=== PATIENT | female | born 1945 | race Two or more races ===

== ENCOUNTER 2023-12-03 13:48 | Inpatient (IN) | payer MEDICARE, OTHER ==
[~2023-12-03] VITALS: Ht 157.5 cm; Wt 72.1 kg
[2023-12-03 22:34] VITALS: BP 126/64; TEMP 98.1; O2SAT 95
[2023-12-03] MEDS ORDERED: POTASSIUM BICARB PO (22:58)
[2023-12-03] MEDS ORDERED: AMLO10TA59 PO (22:58)
[2023-12-03] MEDS ORDERED: DOCU100C36 PO (22:58)
[2023-12-03] MEDS ORDERED: MECL-159 PO (22:58)
[2023-12-03] MEDS ORDERED: HYDR-894 PO (22:58)
[2023-12-03] MEDS ORDERED: LISI10TA29 PO (22:58)
[2023-12-03] MEDS ORDERED: ATOR20TA PO (22:58)
[2023-12-03] MEDS ORDERED: SENN8.6T19 PO (22:58)
[2023-12-03] MEDS ORDERED: LEVO50TA8 PO (22:58)
[2023-12-03] MEDS ORDERED: NITR0.4T48 SL (22:58)
[2023-12-03] MEDS ORDERED: zofran (22:58)
[2023-12-03] MEDS ORDERED: ENOX40DI SQ (22:58)
[2023-12-03] MEDS ORDERED: cymbalta (22:58)
[2023-12-03] MEDS ORDERED: MAG30ORA PO (22:58)
[2023-12-03] MEDS ORDERED: TRAM100T23 PO (22:58)
[2023-12-03] MEDS ORDERED: ASPI81TA31 PO (22:58)
[2023-12-04] MEDS ORDERED: REMEDY ESSENTIAL ZINC PASTE 113 GM TOP PRN (03:45)
[2023-12-04 06:00] VITALS: BP 153/60; TEMP 98.2; O2SAT 95
[2023-12-04] MEDS ORDERED: TRAMADOL HCL 50 MG TABLET PO PRN (08:45)
[2023-12-04] MEDS ORDERED: NITROGLYCERIN 0.4 MG/TAB BOTTLE SL PRN (08:45)
[2023-12-04] MEDS ORDERED: hydrALAZINE HCL 25 MG TABLET PO SCH (09:00)
[2023-12-04] MEDS ORDERED: ENOXAPARIN SODIUM 40 MG/0.4 ML DISP.SYRIN SQ SCH (09:00)
[2023-12-04] MEDS: DOCUSATE SODIUM 100 MG CAPSULE PO SCH (09:57)
[2023-12-04] MEDS: ASPIRIN 81 MG TAB.CHEW PO SCH (09:57)
[2023-12-04] MEDS: ATORVASTATIN 20 MG TABLET PO SCH (09:58)
[2023-12-04] MEDS: LEVOTHYROXINE SODIUM 50 MCG TABLET PO SCH (09:58)
[2023-12-04] MEDS: HYDROCODONE/APAP 5-325MG TABLET PO PRN (10:00)
[2023-12-04] MEDS ORDERED: DULO30CA2 PO (12:07)
[2023-12-04] MEDS: AMLODIPINE 10 MG TABLET PO SCH (12:49)
[2023-12-04] MEDS: hydrALAZINE HCL 25 MG TABLET PO SCH (14:33)
[2023-12-04] MEDS: LISINOPRIL 10 MG TABLET PO SCH (14:33)
[2023-12-04] MEDS: DULOXETINE 30 MG CAPSULE.DR PO SCH (14:33)
[2023-12-04] MEDS: ENOXAPARIN SODIUM 40 MG/0.4 ML DISP.SYRIN SQ ONE (14:34)
[2023-12-04 15:41] VITALS: BP 138/59; TEMP 97.8; O2SAT 99
[2023-12-04] MEDS: MAG HYDROX/AL HYDROX/SIMETH 30 ML LIQUID UDC PO SCH (17:10)
[2023-12-04] MEDS: MECLIZINE HCL 25 MG TABLET PO PRN (17:47)
[2023-12-04] MEDS: SENNOSIDES 1 TABLET PO PRN (18:04)
[2023-12-04 20:00] VITALS: BP 151/68; TEMP 97.6; O2SAT 95
[2023-12-04] MEDS: BISACODYL 10 MG SUPP.RECT RC PRN (21:31)
[2023-12-05 05:46] VITALS: BP 158/72; TEMP 97.7; O2SAT 95
[2023-12-05] MEDS: ONDANSETRON 4 MG/2 ML VIAL IV PRN (09:12)
[2023-12-05] MEDS: ENOXAPARIN SODIUM 40 MG/0.4 ML DISP.SYRIN SQ SCH (09:33)
[2023-12-05] MEDS: MEGESTROL ACETATE 400 MG/10 ML LIQUID UDC PO SCH (09:34)
[2023-12-05 11:04] VITALS: BP 138/68; TEMP 97.6; O2SAT 97
[2023-12-05 16:39] VITALS: BP 127/75; TEMP 97.8; O2SAT 97
[2023-12-05 21:57] VITALS: BP 129/63; TEMP 98.2; O2SAT 96
[2023-12-06 07:06] LABS: BASOPHILS % (AUTO) 0.7 % (0.0-2.0); EOSINOPHILS # (AUTO) 0.5 K/uL (0.0-0.7); EOSINOPHILS % (AUTO) 7.7 % (0.0-7.0); HEMATOCRIT 34.3 % (31.2-41.9); HEMOGLOBIN 11.6 g/dL (10.9-14.3); LYMPHOCYTES # (AUTO) 1.9 K/uL (0.8-4.8); LYMPHOCYTES % (AUTO) 27.1 % (20.5-51.5); MEAN CORPUSCULAR HEMOGLOBIN 33.4 uug (24.7-32.8); MEAN CORPUSCULAR HGB CONC 34 g/dL (32.3-35.6); MEAN CORPUSCULAR VOLUME 98.5 fL (75.5-95.3); MONOCYTES # (AUTO) 1.1 K/uL (0.1-1.30); NEUTROPHILS # (AUTO) 3.5 K/uL (1.8-8.9); NEUTROPHILS % (AUTO) 49.5 % (38.5-71.5); PLATELET COUNT (AUTO) 161 K/uL (179-408); RED BLOOD CELL COUNT(AUTO) 3.48 MIL/uL (3.63-4.92); RED CELL DISTRIBUTION WIDTH 14.2 % (12.3-17.7); WHITE BLOOD COUNT (AUTO) 7.1 K/uL (3.8-11.8)
[2023-12-06 07:12] LABS: CALCIUM 8.7 mg/dL (8.5-10.1); POTASSIUM 4.3 mmol/L (3.5-5.1)
[2023-12-06 07:26] VITALS: BP 138/72; TEMP 98.2; O2SAT 96
[2023-12-06 07:32] LABS: THYROID STIMULATING HORMONE 5.429 mIU/mL (0.358-3.740)
[2023-12-06 13:33] LABS: BAND % (MANUAL) 1 % (0-10); EOSINOPHILS % (MANUAL) 8 % (0-8); LYMPHOCYTES % (MANUAL) 30 % (20-40); MONOCYTES % (MANUAL) 11 % (2-10); NEUTROPHILS % (MANUAL) 50 % (42-75); PLATELET ESTIMATE ADEQUATE
[2023-12-06 13:34] LABS: ANISOCYTOSIS 1+
[2023-12-06] MEDS: ENSURE WITH FIBER 237 ML LIQUID (CHOCOLATE) PO SCH (14:47)
[2023-12-06 15:13] VITALS: BP 124/60; TEMP 97.7; O2SAT 97
[2023-12-06] MEDS: TRAZODONE 50 MG TABLET PO PRN (22:34)
[2023-12-07 16:21] VITALS: BP 103/50; TEMP 98.6; O2SAT 98
[2023-12-07 20:09] VITALS: BP 121/62; TEMP 97.5; O2SAT 93
[2023-12-08 16:13] VITALS: BP 137/54; TEMP 98; O2SAT 96
[2023-12-08 20:24] VITALS: BP 132/71; TEMP 97.9; O2SAT 98
[2023-12-09 06:12] VITALS: BP 138/73; TEMP 98.1; O2SAT 96
[2023-12-09] MEDS: MIRALAX 17 GM POWD.PACK PO SCH (13:21)
[2023-12-09 16:00] VITALS: BP 121/60; TEMP 98; O2SAT 96
[2023-12-09 20:00] VITALS: BP 122/65; TEMP 98.2; O2SAT 95
[2023-12-10 06:52] VITALS: BP 130/63; TEMP 98.2; O2SAT 95
[2023-12-10 16:45] VITALS: BP 121/74; TEMP 98; O2SAT 95
[2023-12-10 21:54] VITALS: BP 132/58; TEMP 98.3; O2SAT 95
[2023-12-11 07:28] LABS: BASOPHILS # (AUTO) 0.1 K/UL (0.0-0.2); EOSINOPHILS # (AUTO) 0.5 K/uL (0.0-0.7); EOSINOPHILS % (AUTO) 9.1 % (0.0-7.0); HEMATOCRIT 34.9 % (31.2-41.9); HEMOGLOBIN 11.8 g/dL (10.9-14.3); LYMPHOCYTES # (AUTO) 2.1 K/uL (0.8-4.8); MEAN CORPUSCULAR HEMOGLOBIN 33.3 uug (24.7-32.8); MEAN CORPUSCULAR HGB CONC 34 g/dL (32.3-35.6); MEAN CORPUSCULAR VOLUME 98.5 fL (75.5-95.3); MONOCYTES # (AUTO) 0.8 K/uL (0.1-1.30); MONOCYTES % (AUTO) 14.3 % (0.0-11.0); NEUTROPHILS # (AUTO) 2.3 K/uL (1.8-8.9); NEUTROPHILS % (AUTO) 39.6 % (38.5-71.5); PLATELET COUNT (AUTO) 190 K/uL (179-408); RED BLOOD CELL COUNT(AUTO) 3.54 MIL/uL (3.63-4.92); RED CELL DISTRIBUTION WIDTH 14.2 % (12.3-17.7); WHITE BLOOD COUNT (AUTO) 5.8 K/uL (3.8-11.8)
[2023-12-11 07:39] LABS: DIFFERENTIAL COMMENT 1
[2023-12-11 07:45] VITALS: BP 138/66; TEMP 98.9; O2SAT 94
[2023-12-11 09:06] LABS: ALBUMIN 3.4 g/dL (3.4-5.0); BILIRUBIN,TOTAL 0.5 mg/dL (0.2-1.0); CALCIUM 9.1 mg/dL (8.5-10.1); MAGNESIUM 2.8 mg/dL (1.8-2.4); POTASSIUM 4.4 mmol/L (3.5-5.1); TOTAL PROTEIN, SERUM 7.3 g/dL (6.4-8.2)
[2023-12-11 09:11] VITALS: BP 125/57; TEMP 97.6; O2SAT 95
[2023-12-11 14:03] LABS: THYROID STIMULATING HORMONE 8.937 mIU/mL (0.358-3.740)
[2023-12-11 15:41] VITALS: BP 130/64; TEMP 98.7; O2SAT 96
[2023-12-11 20:00] VITALS: BP 130/77; TEMP 97.6; O2SAT 99
[2023-12-12 15:41] VITALS: BP 107/51; TEMP 98.6; O2SAT 97
[2023-12-12 20:00] VITALS: BP 120/57; TEMP 98.4; O2SAT 94
[2023-12-12] MEDS: ATORVASTATIN 10 MG TABLET PO SCH (21:00)
[2023-12-13] MEDS: LEVOTHYROXINE SODIUM 75 MCG TABLET PO SCH (06:16)
[2023-12-13 09:46] VITALS: BP 98/48; TEMP 98.4; O2SAT 96
[2023-12-13 12:00] VITALS: BP 131/47; TEMP 97.2; O2SAT 97
[2023-12-13 16:00] VITALS: BP 133/73; TEMP 98.6; O2SAT 97
[2023-12-13 20:00] VITALS: BP 136/66; TEMP 96.6; O2SAT 97
[2023-12-14 05:33] VITALS: BP 133/61; TEMP 98; O2SAT 96
[2023-12-14 08:33] VITALS: BP 133/61
== END 2023-12-14 14:50 | disposition home health service (06) | DRG 560 ==
PROVIDERS: ADMIT Physical Medicine & Rehabilitation Pain Medicine; ATTEND Physical Medicine & Rehabilitation Pain Medicine
DX: S22.089D Unspecified fracture of T11-T12 vertebra, subsequent encounter for fracture with routine healing (principal); C56.9 Malignant neoplasm of unspecified ovary; C78.6 Secondary malignant neoplasm of retroperitoneum and peritoneum; D68.59 Other primary thrombophilia; W18.30XD Fall on same level, unspecified, subsequent encounter; E03.9 Hypothyroidism, unspecified; G89.29 Other chronic pain; I10 Essential (primary) hypertension; R53.1 Weakness; D75.89 Other specified diseases of blood and blood-forming organs; K59.00 Constipation, unspecified; E66.9 Obesity, unspecified; Z68.29 Body mass index [BMI] 29.0-29.9, adult; Z86.718 Personal history of other venous thrombosis and embolism; Z79.899 Other long term (current) drug therapy; R63.0 Anorexia
CPT/HCPCS: 36415; 70030-TC; 82652; 83550; 83735; 84100; 84443; 85025; 97535-GO-CO; J1650; J2405; J8597; J8999